=== PATIENT | female | born 1955 | race Caucasian/White ===

== ENCOUNTER 2017-03-12 15:58 | Emergency (ER) | payer OTHER ==
[~2017-03-12] VITALS: Ht 162.6 cm; Wt 62.0 kg
[~2017-03-12 15:58] MED LIST: ACCUPRIL; ALBUTEROL SULF8.5 GM IH; ANTIHYPERTENSIVE; ASPIRIN EC325 MG PO; ASPIRIN325 MG PO; AUGMENTIN875 MG PO; ESCITALOPRAM OX20 MG PO; HYDROCHLOROTH12.5 M3 PO; LISINOPRIL20 MG PO; LISINOPRIL30 MG PO; LOPRESSOR50 MG PO; METOPROLOL TART50 MG PO; NOHOMEMEDS; OMEPRAZOLE40 M1 PO; OXYBUTYNIN CHLOR5 MG PO; PRAVASTATIN SOD40 MG PO; PREDNISONE20 MG PO; TESSALON PERLE100 MG PO; ULTRAM50 MG PO; ZOFRAN4 MG PO; ZOLOFT25 MG PO
[2017-03-12] MEDS ORDERED: CLINDAMYCIN HC150 MG PO (16:19)
[2017-03-12] MEDS ORDERED: NORCO 5/3251 TABLET PO (16:19)
[2017-03-12] MEDS ORDERED: TRAMADOL HCL50 MG PO (16:48)
[2017-03-12 17:02] VITALS: BP 117/83
== END 2017-03-12 17:03 | disposition home or self-care (01) ==
LOC: EME → EDBD 15:58 → EME 17:03
DX: K08.89 Other specified disorders of teeth and supporting structures (principal); K02.9 Dental caries, unspecified; R68.2 Dry mouth, unspecified; H92.02 Otalgia, left ear; I10 Essential (primary) hypertension; Z79.82 Long term (current) use of aspirin; F17.200 Nicotine dependence, unspecified, uncomplicated
CPT/HCPCS: 99281; 99283

== ENCOUNTER 2017-03-18 15:05 | Inpatient (IN) | payer OTHER ==
[~2017-03-18] VITALS: Ht 162.6 cm; Wt 67.5 kg
[~2017-03-18 15:05] MED LIST changes: +CLINDAMYCIN HC150 MG PO; +NORCO 5/3251 TABLET PO; +TRAMADOL HCL50 MG PO
[2017-03-18 15:45] LABS: EOSINOPHIL (%) 0.9 % (0-5); EOSINOPHIL COUNT 0.1 K/uL (0-0.3); HEMATOCRIT 35.4 % (36.0-46.0); IMMATURE GRANULOCYTE (%) 0.3 % (0.0-0.7); INSTRUMENT ABS NEUTROPHIL CT 10.5 K/uL; LYMPHOCYTE COUNT 1.3 K/uL (1.0-2.8); MCH 26.4 PG (29.0-34.0); MCHC 32.8 G/DL (30.0-36.0); MCV 80.6 FL (83-99); MEAN PLAT.VOLUME 10.3 uM^3 (9.5-12.4); MONOCYTE (%) 6.2 % (3-12); MONOCYTE COUNT 0.8 K/uL (0-0.8); NEUTROPHIL (%) 81.8 % (45-76); NEUTROPHIL COUNT 10.5 K/uL (1.8-6.4); PLATELET COUNT 349 K/uL (156-360); RBC DIS.WIDTH-CV 16.2 % (11.8-14.6); RBC DIS.WIDTH-SD 41.5 % (39-53); RED BLOOD COUNT 4.39 M/uL (3.80-5.20); WHITE BLOOD COUNT 12.8 K/uL (4.1-10.2)
[2017-03-18 15:53] LABS: CHLORIDE 96 mEq/L (99-109)
[2017-03-18 15:54] LABS: SODIUM 137 mEq/L (136-147)
[2017-03-18 15:56] LABS: GLUCOSE 115 mg/dL (70-99)
[2017-03-18 15:57] LABS: ANION GAP 10 MEQ/L (2-14)
[2017-03-18 15:58] LABS: TOTAL BILIRUBIN 0.8 mg/dL (0.0-1.0)
[2017-03-18 15:59] LABS: ALKALINE PHOSPHATASE 108 IU/L (3-129); GFR ESTIMATE (CALCULATED) > 59 mL/min/
[2017-03-18 16:01] LABS: UREA NITROGEN (BUN) 11 mg/dL (9-23)
[2017-03-18 16:08] LABS: POTASSIUM 2.3 mEq/L (3.7-5.4)
[2017-03-18 17:35] LABS: TROP-I INTERPRETATION NEGATIVE; TROPONIN-I < 0.01 ng/mL (0.0-0.30)
[2017-03-18 22:00] VITALS: BP 120/60
[2017-03-19] VITALS (7 sets, daily range): BP systolic 116–136; BP diastolic 59–69
[2017-03-19 06:21] LABS: MCH 30.9 PG (29.0-34.0); MEAN PLAT.VOLUME 10.7 uM^3 (9.5-12.4); PLATELET COUNT 335 K/uL (156-360); RBC DIS.WIDTH-CV 21.3 % (11.8-14.6); RBC DIS.WIDTH-SD 43.9 % (39-53); WHITE BLOOD COUNT 15.4 K/uL (4.1-10.2)
[2017-03-19 06:37] LABS: ANION GAP 11 MEQ/L (2-14); CHLORIDE 99 MEQ/L (99-109); GFR ESTIMATE (CALCULATED) > 59 mL/min/; GLUCOSE 145 mg/dL (70-99); SAMPLE HEMOLYSIS CHECK 0; SAMPLE ICTERIC CHECK 0; SAMPLE LIPEMIA CHECK 0; SODIUM 140 MEQ/L (136-147); UREA NITROGEN (BUN) 12 mg/dL (9-23)
[2017-03-19 06:39] LABS: POTASSIUM 3.1 MEQ/L (3.7-5.4)
[2017-03-19 07:12] LABS: MCV 88.2 FL (83-99)
[2017-03-19 08:07] LABS: MAGNESIUM 1.8 mg/dl (1.3-2.7)
[2017-03-20 03:57] VITALS: BP 130/57
[2017-03-20 06:51] LABS: ANION GAP 10 MEQ/L (2-14); CHLORIDE 98 MEQ/L (99-109); GFR ESTIMATE (CALCULATED) > 59 mL/min/; GLUCOSE 131 mg/dL (70-99); POTASSIUM 3.5 MEQ/L (3.7-5.4); SAMPLE HEMOLYSIS CHECK 0; SAMPLE ICTERIC CHECK 0; SAMPLE LIPEMIA CHECK 0; SODIUM 138 MEQ/L (136-147); UREA NITROGEN (BUN) 17 mg/dL (9-23)
[2017-03-20 07:05] LABS: HEMATOCRIT 27.4 % (36.0-46.0); MCH 33.8 PG (29.0-34.0); MCHC 36.5 G/DL (30.0-36.0); MEAN PLAT.VOLUME 10.9 uM^3 (9.5-12.4); PLATELET COUNT 355 K/uL (156-360); RED BLOOD COUNT 2.96 M/uL (3.80-5.20); WHITE BLOOD COUNT 26.4 K/uL (4.1-10.2)
[2017-03-20 07:06] LABS: MCV 92.6 FL (83-99)
[2017-03-20 07:18] VITALS: BP 133/60
[2017-03-20 12:00] VITALS: BP 163/76
[2017-03-20 16:16] VITALS: BP 129/70
[2017-03-20 20:16] VITALS: BP 125/60
[2017-03-21 06:55] LABS: ANION GAP 9 MEQ/L (2-14); CHLORIDE 101 MEQ/L (99-109); GFR ESTIMATE (CALCULATED) > 59 mL/min/; GLUCOSE 113 mg/dL (70-99); POTASSIUM 3.5 MEQ/L (3.7-5.4); SAMPLE HEMOLYSIS CHECK 0; SAMPLE ICTERIC CHECK 0; SAMPLE LIPEMIA CHECK 0; SODIUM 141 MEQ/L (136-147); UREA NITROGEN (BUN) 22 mg/dL (9-23)
[2017-03-21 07:36] VITALS: BP 147/70
[2017-03-21 07:51] LABS: MAGNESIUM 1.9 mg/dl (1.3-2.7)
[2017-03-21 09:07] LABS: HEMATOCRIT 31.3 % (36.0-46.0); RBC DIS.WIDTH-CV 15.4 % (11.8-14.6); RBC DIS.WIDTH-SD 44.9 % (39-53); WHITE BLOOD COUNT 20.8 K/uL (4.1-10.2)
[2017-03-21 09:09] VITALS: BP 148/86
[2017-03-21 09:29] LABS: MCH 24.4 PG (29.0-34.0); MCV 81.1 FL (83-99); RED BLOOD COUNT 3.86 M/uL (3.80-5.20)
[2017-03-21 09:40] LABS: MEAN PLAT.VOLUME 10.5 uM^3 (9.5-12.4); PLATELET COUNT 348 K/uL (156-360)
[2017-03-21 11:26] VITALS: BP 150/70
[2017-03-21 16:18] VITALS: BP 171/67
[2017-03-21 20:24] VITALS: BP 143/65
[2017-03-21 23:56] VITALS: BP 119/75
[2017-03-22 06:36] VITALS: BP 181/74
[2017-03-22 06:50] VITALS: BP 195/75
[2017-03-22] MEDS ORDERED: SPIRIVA RESPIMAT4 G1 IH (09:19)
[2017-03-22] MEDS ORDERED: VENTOLIN HFA18 GM IH (09:19)
[2017-03-22] MEDS ORDERED: PREDNISONE10 MG PO (09:19)
[2017-03-22] MEDS ORDERED: FLONASE16 G1 BOTH NARES (09:19)
[2017-03-22] MEDS ORDERED: AMOX TR-K CLV1 EAC4 PO (09:19)
[2017-03-22] MEDS ORDERED: DUONEB 2.5-0.5 M3 ML AEROSOL (09:19)
[2017-03-22] MEDS ORDERED: ADVAIR HFA120 INHALA IH (09:19)
[2017-03-22 10:44] LABS: HEMATOCRIT 28.6 % (36.0-46.0); MEAN PLAT.VOLUME 10.8 uM^3 (9.5-12.4); PLATELET COUNT 346 K/uL (156-360); RED BLOOD COUNT 3.17 M/uL (3.80-5.20); WHITE BLOOD COUNT 17.1 K/uL (4.1-10.2)
[2017-03-22 10:46] LABS: MCH 32.8 PG (29.0-34.0); MCHC 36.4 G/DL (30.0-36.0); MCV 90.2 FL (83-99)
[2017-03-22 11:22] LABS: ANION GAP 8 MEQ/L (2-14); CHLORIDE 99 MEQ/L (99-109); GFR ESTIMATE (CALCULATED) > 59 mL/min/; GLUCOSE 90 mg/dL (70-99); SAMPLE HEMOLYSIS CHECK 0; SAMPLE ICTERIC CHECK 0; SAMPLE LIPEMIA CHECK 0; SODIUM 140 MEQ/L (136-147); UREA NITROGEN (BUN) 21 mg/dL (9-23)
[2017-03-22] MEDS ORDERED: POTASSIUM CHLO20 MEQ PO (14:17)
[2017-03-22 14:48] VITALS: BP 154/68
[2017-03-22 15:25] VITALS: BP 96/54
[2017-03-22 15:50] VITALS: BP 148/69
== END 2017-03-22 16:25 | disposition home or self-care (01) | DRG 196 ==
LOC: EME 15:05 → 5EAST 20:12 → EDOF 20:12 → ENRESERV 20:16 → 5EAST 21:14
PROVIDERS: Emergency Medicine; Hospitalist; Internal Medicine
DX: J84.9 Interstitial pulmonary disease, unspecified (principal); J44.1 Chronic obstructive pulmonary disease with (acute) exacerbation; J96.01 Acute respiratory failure with hypoxia; E87.6 Hypokalemia; R91.8 Other nonspecific abnormal finding of lung field; R59.0 Localized enlarged lymph nodes; E78.00 Pure hypercholesterolemia, unspecified; E78.5 Hyperlipidemia, unspecified; F17.200 Nicotine dependence, unspecified, uncomplicated; I10 Essential (primary) hypertension; K21.9 Gastro-esophageal reflux disease without esophagitis; F32.9 Major depressive disorder, single episode, unspecified; G43.909 Migraine, unspecified, not intractable, without status migrainosus; Z23 Encounter for immunization; Z79.82 Long term (current) use of aspirin
CPT/HCPCS: 71020; 71275; 80048; 80053; 81003; 83605; 83735; 84484; 85025; 85027; 85379; 87040; 90686; 93005; 94640; 94640 76; 94760; 94799; 99202; 99281; 99284; J0295; J0696; J1100; J1650; J2930; J3480; J7050; J7512; J7644